=== PATIENT | female | born 1965 | race Caucasian/White ===

== ENCOUNTER 2021-01-31 11:40 | Emergency (ER) | payer MEDICARE, OTHER ==
[~2021-01-31] VITALS: Ht 154.9 cm; Wt 45.4 kg
[2021-01-31] MEDS ORDERED: ALEN70 PO (12:04)
== END 2021-01-31 13:38 | disposition home or self-care (01) ==
LOC: ER 11:40
DX: S63.610A Unspecified sprain of right index finger, initial encounter (principal); Z23 Encounter for immunization; W23.0XXA Caught, crushed, jammed, or pinched between moving objects, initial encounter
CPT/HCPCS: 29130; 73140; 90471; 90714; 99283-25